=== PATIENT | female | born 1960 | race Caucasian/White ===

== ENCOUNTER 2017-05-10 09:24 | Day surgery (SDC) | payer BC ==
[2017-05-10] MEDS ORDERED: MIDAZOLAM 1 MG/ML 2 ML INJ ×3 (11:54→11:55)
[2017-05-10] MEDS ORDERED: FENTAnyl 50 MCG/ML VIAL (11:55)
== END 2017-05-10 12:33 | disposition home or self-care (01) ==
LOC: GIL 09:24
DX: C18.2 Malignant neoplasm of ascending colon (principal); K29.50 Unspecified chronic gastritis without bleeding; B96.81 Helicobacter pylori [H. pylori] as the cause of diseases classified elsewhere; K26.9 Duodenal ulcer, unspecified as acute or chronic, without hemorrhage or perforation; K64.8 Other hemorrhoids
CPT/HCPCS: 43239; 88305; 88312

== ENCOUNTER 2017-07-04 06:51 | Inpatient (IN) | payer BC ==
[2017-07-04] MEDS: AMPICILLIN/SULB 3 GM/NS (PMX) 100 ML IVPB (07:00)
[2017-07-04] MEDS ORDERED: SOD CHLORIDE 0.9% 1,000 ML IV (07:00)
[2017-07-04] MEDS: metroNIDAZOLE 500 MG/NS (PMX) 100 ML IVPB (07:00)
[2017-07-04 08:51] LABS: ADD MAN DIFF? NO
[2017-07-04 08:53] LABS: WHITE BLOOD COUNT 6.2 10^3/ul (4.8-10.8)
[2017-07-04 08:53] LABS: BASOPHIL # 0.1 10^3/ul (0.0-0.1); EOSINOPHILS # 0.1 10^3/ul (0.0-0.5); EOSINOPHILS % 1.6 % (0.0-7.0); HEMATOCRIT 36.1 % (37.0-47.0); HEMOGLOBIN 11.5 g/dl (12.0-16.0); LYMPHOCYTES # 1.8 10^3/ul (0.8-2.9); LYMPHOCYTES % 28.5 % (15.0-51.0); MEAN CORPUSCULAR HEMOGLOBIN 26.9 pg (29.0-33.0); MEAN CORPUSCULAR HGB CONC 31.9 g/dl (32.0-37.0); MEAN CORPUSCULAR VOLUME 84.3 fl (82.0-101.0); MEAN PLATELET VOLUME 12.5 fl (7.4-10.4); MONOCYTE # 0.3 10^3/ul (0.3-0.9); NEUTROPHILS % 63.7 % (39.0-77.0); PLATELET COUNT 213 10^3/UL (140-415); RED BLOOD COUNT 4.28 10^6/ul (4.20-5.40); RED CELL DISTRIBUTION WIDTH 13.5 % (11.5-14.5)
[2017-07-04 08:56] LABS: INR 1.03; PROTIME 13.6 Sec (11.9-14.9); PT RATIO 1.1
[2017-07-04 08:57] LABS: PARTIAL THROMBOPLASTIN TIME 30.2 Sec (25.0-35.0)
[2017-07-04 09:00] LABS: ALANINE AMINOTRANSFERASE 17 IU/L (13-69); ALBUMIN 4.3 g/dl (3.3-4.9); ALBUMIN/GLOBULIN RATIO 1.34; ALKALINE PHOSPHATASE 65 IU/L (42-121); ANION GAP 17 (8-16); ASPARTATE AMINO TRANSFERASE 14 IU/L (15-46); BILIRUBIN,INDIRECT 0.3 mg/dl (0-1.1); BILIRUBIN,TOTAL 0.3 mg/dl (0.2-1.3); CARBON DIOXIDE 31 mmol/L (21-31); CHLORIDE 101 mmol/L (97-110); GLUCOSE 144 mg/dl (70-220); TOTAL PROTEIN 7.5 g/dl (6.1-8.1)
[2017-07-04 09:05] LABS: BLOOD UREA NITROGEN 10 mg/dl (7-20); CALCIUM 9.5 mg/dl (8.4-10.2); CREATININE 0.65 mg/dl (0.44-1.00); POTASSIUM 4.3 mmol/L (3.5-5.1); SODIUM 145 mmol/L (135-144)
[2017-07-04] MEDS ORDERED: FENTAnyl 50 MCG/ML VIAL ×2 (09:14→11:23)
[2017-07-04] MEDS ORDERED: ROCURONIUM 50 MG INJ (09:31)
[2017-07-04] MEDS ORDERED: PROPOFOL 20 ML (09:31)
[2017-07-04] MEDS ORDERED: SUGAMMADEX SODIUM 200 MG/2 ML VIAL IV (09:31)
[2017-07-04] MEDS ORDERED: SUCCINYLCHOLINE CHLORIDE 100 MG/5 ML SYG IV (09:31)
[2017-07-04] MEDS ORDERED: CEFAZOLIN 1 GM INJ (09:31)
[2017-07-04] MEDS ORDERED: LIDOCAINE 100 MG SYRINGE (09:31)
[2017-07-04] MEDS: STERILE WATER 1L IRRIG BTL IRR (09:57)
[2017-07-04] MEDS ORDERED: METOCLOPRAMIDE 10 MG INJ IV (11:00)
[2017-07-04] MEDS ORDERED: FENTAnyl 50 MCG/ML VIAL IV ×3 (11:00)
[2017-07-04] MEDS ORDERED: MEPERIDINE 25 MG INJ IV (11:00)
[2017-07-04] MEDS ORDERED: HYDROmorphONE (0.2 MG/ML) 10ML SYG IV (11:00)
[2017-07-04] MEDS ORDERED: DIPHENHYDRAMINE 50 MG INJ IV (11:00)
[2017-07-04] MEDS ORDERED: ACETAMINOPHEN 1000MG/100ML IV 100 ML IVPB (11:30)
[2017-07-04] MEDS: HYDROmorphONE (0.2 MG/ML) 10ML SYG IV ×3 (11:46→12:11)
[2017-07-04] MEDS: ONDANSETRON 4 MG INJ IV (12:03)
[2017-07-04] MEDS: morphine 1 MG/ML 30 ML (PCA) IV ×3 (12:21→20:48)
[2017-07-04] MEDS: D5W-0.45 NACL + KCL 20 MEQ 1,000 ML IV ×2 (13:34→21:14)
[2017-07-04] MEDS ORDERED: GLUCOSE GEL 15 GRAM TUBE BUCCAL (16:30)
[2017-07-04] MEDS ORDERED: GLUCOSE GEL 15 GRAM TUBE PO ×2 (16:30)
[2017-07-04] MEDS ORDERED: GLUCAGON 1 MG INJ IM (16:30)
[2017-07-04] MEDS ORDERED: DEXTROSE 50% 50 ML SYRINGE IV ×2 (16:30)
[2017-07-04] MEDS: INSULIN ASPART [NOVOLOG] 3 ML PEN SC ×2 (17:00→20:53)
[2017-07-04] MEDS: SOD CHLORIDE 0.9% 1,000 ML IV ×2 (20:40→22:01)
[2017-07-05] MEDS: INSULIN ASPART [NOVOLOG] 3 ML PEN SC ×6 (00:49→20:40)
[2017-07-05] MEDS: ACCU-CHEK XX (01:05)
[2017-07-05] MEDS: ONDANSETRON 4 MG INJ IV (04:20)
[2017-07-05] MEDS: D5W-0.45 NACL + KCL 20 MEQ 1,000 ML IV ×3 (05:29→20:42)
[2017-07-05] MEDS ORDERED: INFLUENZA VIRUS VACCINE 0.5 ML (DISPENSING) IM* (09:00)
[2017-07-05 09:54] LABS: ADD MAN DIFF? NO
[2017-07-05 09:56] LABS: BASOPHILS % 0.2 % (0.0-2.0); HEMATOCRIT 33.4 % (37.0-47.0); HEMOGLOBIN 10.5 g/dl (12.0-16.0); LYMPHOCYTES # 0.9 10^3/ul (0.8-2.9); LYMPHOCYTES % 6.5 % (15.0-51.0); MEAN CORPUSCULAR HEMOGLOBIN 27.1 pg (29.0-33.0); MEAN CORPUSCULAR HGB CONC 31.4 g/dl (32.0-37.0); MEAN CORPUSCULAR VOLUME 86.3 fl (82.0-101.0); MEAN PLATELET VOLUME 12.1 fl (7.4-10.4); MONOCYTE # 0.6 10^3/ul (0.3-0.9); MONOCYTES % 4.4 % (0.0-11.0); NEUTROPHIL # 11.6 10^3/ul (1.6-7.5); NEUTROPHILS % 88.4 % (39.0-77.0); PLATELET COUNT 201 10^3/UL (140-415); RED BLOOD COUNT 3.87 10^6/ul (4.20-5.40); RED CELL DISTRIBUTION WIDTH 13.9 % (11.5-14.5)
[2017-07-05 09:56] LABS: WHITE BLOOD COUNT 13.2 10^3/ul (4.8-10.8)
[2017-07-05 10:23] LABS: ANION GAP 12 (8-16); BLOOD UREA NITROGEN 5 mg/dl (7-20); CALCIUM 8.6 mg/dl (8.4-10.2); CARBON DIOXIDE 31 mmol/L (21-31); CHLORIDE 102 mmol/L (97-110); CREATININE 0.67 mg/dl (0.44-1.00); GLUCOSE 185 mg/dl (70-220); MAGNESIUM 1.7 mg/dl (1.7-2.5); PHOSPHORUS 2.8 mg/dl (2.5-4.9); POTASSIUM 4.5 mmol/L (3.5-5.1); SODIUM 140 mmol/L (135-144)
[2017-07-05 10:45] LABS: PARTIAL THROMBOPLASTIN TIME 33.3 Sec (25.0-35.0)
[2017-07-05 10:50] LABS: PROTIME 15.4 Sec (11.9-14.9)
[2017-07-05 10:51] LABS: PT RATIO 1.2
[2017-07-05] MEDS: morphine 1 MG/ML 30 ML (PCA) IV (12:52)
[2017-07-05] MEDS: HYDROmorphONE 0.2 MG/ML PCA IV (18:18)
[2017-07-06] MEDS: INSULIN ASPART [NOVOLOG] 3 ML PEN SC ×6 (01:00→20:45)
[2017-07-06] MEDS: ACCU-CHEK XX (01:38)
[2017-07-06] MEDS: D5W-0.45 NACL + KCL 20 MEQ 1,000 ML IV ×3 (03:35→21:02)
[2017-07-06 11:20] LABS: ADD MAN DIFF? NO
[2017-07-06 11:26] LABS: BASOPHILS % 0.1 % (0.0-2.0); EOSINOPHILS % 0.1 % (0.0-7.0); HEMATOCRIT 31.4 % (37.0-47.0); HEMOGLOBIN 10.1 g/dl (12.0-16.0); LYMPHOCYTES # 0.9 10^3/ul (0.8-2.9); LYMPHOCYTES % 6.6 % (15.0-51.0); MEAN CORPUSCULAR HEMOGLOBIN 27.2 pg (29.0-33.0); MEAN CORPUSCULAR HGB CONC 32.2 g/dl (32.0-37.0); MEAN CORPUSCULAR VOLUME 84.6 fl (82.0-101.0); MEAN PLATELET VOLUME 12.2 fl (7.4-10.4); MONOCYTE # 0.5 10^3/ul (0.3-0.9); MONOCYTES % 3.4 % (0.0-11.0); NEUTROPHIL # 11.9 10^3/ul (1.6-7.5); NEUTROPHILS % 89.2 % (39.0-77.0); PLATELET COUNT 204 10^3/UL (140-415); RED BLOOD COUNT 3.71 10^6/ul (4.20-5.40); RED CELL DISTRIBUTION WIDTH 13.3 % (11.5-14.5)
[2017-07-06 11:26] LABS: WHITE BLOOD COUNT 13.4 10^3/ul (4.8-10.8)
[2017-07-06 11:45] LABS: ANION GAP 11 (8-16); BLOOD UREA NITROGEN 5 mg/dl (7-20); CALCIUM 8.9 mg/dl (8.4-10.2); CARBON DIOXIDE 32 mmol/L (21-31); CHLORIDE 99 mmol/L (97-110); CREATININE 0.54 mg/dl (0.44-1.00); GLUCOSE 178 mg/dl (70-220); PHOSPHORUS 1.5 mg/dl (2.5-4.9); SODIUM 138 mmol/L (135-144)
[2017-07-06 11:51] LABS: INR 1.13; PROTIME 14.7 Sec (11.9-14.9); PT RATIO 1.1
[2017-07-06 11:52] LABS: PARTIAL THROMBOPLASTIN TIME 33.6 Sec (25.0-35.0)
[2017-07-06 12:01] LABS: MAGNESIUM 1.9 mg/dl (1.7-2.5)
[2017-07-06] MEDS: SODIUM PHOSPHATE 15 MMOL in SOD CHLORIDE 0.9% 250 ML IVPB (17:48)
[2017-07-07] MEDS: INSULIN ASPART [NOVOLOG] 3 ML PEN SC ×6 (00:34→21:20)
[2017-07-07] MEDS: D5W-0.45 NACL + KCL 20 MEQ 1,000 ML IV ×3 (00:38→22:02)
[2017-07-07] MEDS: ACCU-CHEK XX (02:00)
[2017-07-07 10:07] LABS: ADD MAN DIFF? NO
[2017-07-07 10:08] LABS: WHITE BLOOD COUNT 12.3 10^3/ul (4.8-10.8)
[2017-07-07 10:08] LABS: BASOPHIL # 0.1 10^3/ul (0.0-0.1); BASOPHILS % 0.4 % (0.0-2.0); EOSINOPHILS % 0.3 % (0.0-7.0); HEMATOCRIT 32.6 % (37.0-47.0); HEMOGLOBIN 10.4 g/dl (12.0-16.0); LYMPHOCYTES # 1.2 10^3/ul (0.8-2.9); LYMPHOCYTES % 9.4 % (15.0-51.0); MEAN CORPUSCULAR HEMOGLOBIN 26.9 pg (29.0-33.0); MEAN CORPUSCULAR HGB CONC 31.9 g/dl (32.0-37.0); MEAN CORPUSCULAR VOLUME 84.5 fl (82.0-101.0); MEAN PLATELET VOLUME 12.1 fl (7.4-10.4); MONOCYTE # 0.5 10^3/ul (0.3-0.9); MONOCYTES % 4.2 % (0.0-11.0); NEUTROPHIL # 10.5 10^3/ul (1.6-7.5); NEUTROPHILS % 85.2 % (39.0-77.0); PLATELET COUNT 231 10^3/UL (140-415); RED BLOOD COUNT 3.86 10^6/ul (4.20-5.40); RED CELL DISTRIBUTION WIDTH 13.2 % (11.5-14.5)
[2017-07-07 10:34] LABS: ANION GAP 15 (8-16); BLOOD UREA NITROGEN 10 mg/dl (7-20); CALCIUM 8.9 mg/dl (8.4-10.2); CARBON DIOXIDE 29 mmol/L (21-31); CHLORIDE 103 mmol/L (97-110); CREATININE 0.59 mg/dl (0.44-1.00); GLUCOSE 150 mg/dl (70-220); INR 1.09; PHOSPHORUS 2.2 mg/dl (2.5-4.9); POTASSIUM 3.6 mmol/L (3.5-5.1); PROTIME 14.2 Sec (11.9-14.9); PT RATIO 1.1; SODIUM 143 mmol/L (135-144)
[2017-07-07] MEDS: ONDANSETRON 4 MG INJ IV (11:39)
[2017-07-07 14:14] LABS: ADD UMIC YES; UR ASCORBIC ACID NEGATIVE (NEGATIVE); UR BILIRUBIN (Dip) NEGATIVE (NEGATIVE); UR BLOOD (Dip) NEGATIVE (NEGATIVE); UR CLARITY CLEAR (CLEAR); UR COLOR YELLOW (YELLOW); UR GLUCOSE (Dip) NEGATIVE (NEGATIVE); UR KETONES (Dip) 1+ mg/dL (NEGATIVE); UR LEUKOCYTE ESTERASE (Dip) NEGATIVE Leu/ul (NEGATIVE); UR MUCUS FEW /HPF (NONE SEEN); UR NITRITE (Dip) NEGATIVE (NEGATIVE); UR RBC 5 /HPF (0-5); UR SPECIFIC GRAVITY (Dip) 1.016 (1.003-1.030); UR TOTAL PROTEIN (Dip) 1+ mg/dl (NEGATIVE); UR UROBILINOGEN (Dip) NEGATIVE (NEGATIVE); UR WBC 3 /HPF (0-5)
[2017-07-07] MEDS: hydrALAzine 20 MG INJ IV (14:27)
[2017-07-08] MEDS: INSULIN ASPART [NOVOLOG] 3 ML PEN SC ×6 (01:04→20:18)
[2017-07-08] MEDS: ACCU-CHEK XX (02:00)
[2017-07-08] MEDS: D5W-0.45 NACL + KCL 20 MEQ 1,000 ML IV ×2 (02:39→15:09)
[2017-07-08] MEDS: ONDANSETRON 4 MG INJ IV (04:19)
[2017-07-08 06:19] LABS: ANION GAP 13 (8-16); BLOOD UREA NITROGEN 12 mg/dl (7-20); CALCIUM 8.9 mg/dl (8.4-10.2); CARBON DIOXIDE 29 mmol/L (21-31); CHLORIDE 103 mmol/L (97-110); CREATININE 0.58 mg/dl (0.44-1.00); GLUCOSE 166 mg/dl (70-220); POTASSIUM 3.6 mmol/L (3.5-5.1); SODIUM 141 mmol/L (135-144)
[2017-07-09] MEDS: INSULIN ASPART [NOVOLOG] 3 ML PEN SC ×6 (01:29→21:17)
[2017-07-09] MEDS: ACCU-CHEK XX (02:00)
[2017-07-09] MEDS: D5W-0.45 NACL + KCL 20 MEQ 1,000 ML IV (02:17)
[2017-07-09 05:47] LABS: ADD MAN DIFF? NO
[2017-07-09 05:51] LABS: BASOPHIL # 0.1 10^3/ul (0.0-0.1); BASOPHILS % 0.6 % (0.0-2.0); EOSINOPHILS # 0.2 10^3/ul (0.0-0.5); EOSINOPHILS % 1.6 % (0.0-7.0); HEMATOCRIT 35.2 % (37.0-47.0); HEMOGLOBIN 11.3 g/dl (12.0-16.0); LYMPHOCYTES # 1.8 10^3/ul (0.8-2.9); LYMPHOCYTES % 14.9 % (15.0-51.0); MEAN CORPUSCULAR HEMOGLOBIN 26.7 pg (29.0-33.0); MEAN CORPUSCULAR HGB CONC 32.1 g/dl (32.0-37.0); MEAN PLATELET VOLUME 11.8 fl (7.4-10.4); MONOCYTE # 0.6 10^3/ul (0.3-0.9); MONOCYTES % 5.1 % (0.0-11.0); NEUTROPHIL # 9.6 10^3/ul (1.6-7.5); NEUTROPHILS % 77.5 % (39.0-77.0); PLATELET COUNT 325 10^3/UL (140-415); RED BLOOD COUNT 4.24 10^6/ul (4.20-5.40); RED CELL DISTRIBUTION WIDTH 13.6 % (11.5-14.5)
[2017-07-09 05:51] LABS: WHITE BLOOD COUNT 12.4 10^3/ul (4.8-10.8)
[2017-07-09 06:14] LABS: ANION GAP 13 (8-16); BLOOD UREA NITROGEN 15 mg/dl (7-20); CALCIUM 8.5 mg/dl (8.4-10.2); CARBON DIOXIDE 30 mmol/L (21-31); CHLORIDE 102 mmol/L (97-110); CREATININE 0.52 mg/dl (0.44-1.00); GLUCOSE 162 mg/dl (70-220); POTASSIUM 3.9 mmol/L (3.5-5.1); SODIUM 141 mmol/L (135-144)
[2017-07-09] MEDS: HYDROmorphONE 0.5 MG/0.5 ML SYG IV (11:49)
[2017-07-10] MEDS: D5W-0.45 NACL + KCL 20 MEQ 1,000 ML IV ×3 (00:02→12:15)
[2017-07-10] MEDS: INSULIN ASPART [NOVOLOG] 3 ML PEN SC ×6 (01:00→21:00)
[2017-07-10] MEDS: ACCU-CHEK XX (02:00)
[2017-07-10 05:37] LABS: ADD MAN DIFF? NO
[2017-07-10 05:38] LABS: WHITE BLOOD COUNT 10.4 10^3/ul (4.8-10.8)
[2017-07-10 05:38] LABS: BASOPHIL # 0.1 10^3/ul (0.0-0.1); BASOPHILS % 0.6 % (0.0-2.0); EOSINOPHILS # 0.3 10^3/ul (0.0-0.5); EOSINOPHILS % 2.7 % (0.0-7.0); HEMATOCRIT 32.6 % (37.0-47.0); HEMOGLOBIN 10.5 g/dl (12.0-16.0); LYMPHOCYTES # 1.9 10^3/ul (0.8-2.9); LYMPHOCYTES % 18.4 % (15.0-51.0); MEAN CORPUSCULAR HEMOGLOBIN 26.7 pg (29.0-33.0); MEAN CORPUSCULAR HGB CONC 32.2 g/dl (32.0-37.0); MEAN PLATELET VOLUME 11.9 fl (7.4-10.4); MONOCYTE # 0.7 10^3/ul (0.3-0.9); MONOCYTES % 6.3 % (0.0-11.0); NEUTROPHIL # 7.5 10^3/ul (1.6-7.5); NEUTROPHILS % 71.7 % (39.0-77.0); PLATELET COUNT 285 10^3/UL (140-415); RED BLOOD COUNT 3.93 10^6/ul (4.20-5.40); RED CELL DISTRIBUTION WIDTH 13.6 % (11.5-14.5)
[2017-07-10] MEDS: DIATR MEGLU/DIATRIZOATE SODIUM 120 ML BTL (12:13)
[2017-07-10] MEDS: ONDANSETRON 4 MG INJ IV ×2 (14:37→20:01)
[2017-07-10] MEDS: HYDROmorphONE 0.5 MG/0.5 ML SYG IV ×2 (14:38→18:41)
[2017-07-10] MEDS: METOCLOPRAMIDE 10 MG INJ IV (22:45)
[2017-07-11] MEDS: INSULIN ASPART [NOVOLOG] 3 ML PEN SC ×5 (00:21→21:00)
[2017-07-11] MEDS: D5W-0.45 NACL + KCL 20 MEQ 1,000 ML IV (01:57)
[2017-07-11] MEDS: ACCU-CHEK XX (02:01)
[2017-07-11 05:06] LABS: ADD MAN DIFF? NO
[2017-07-11 05:07] LABS: BASOPHIL # 0.1 10^3/ul (0.0-0.1); BASOPHILS % 0.4 % (0.0-2.0); EOSINOPHILS # 0.2 10^3/ul (0.0-0.5); EOSINOPHILS % 1.3 % (0.0-7.0); HEMATOCRIT 34.5 % (37.0-47.0); HEMOGLOBIN 11.2 g/dl (12.0-16.0); LYMPHOCYTES # 1.7 10^3/ul (0.8-2.9); LYMPHOCYTES % 14.9 % (15.0-51.0); MEAN CORPUSCULAR HEMOGLOBIN 26.9 pg (29.0-33.0); MEAN CORPUSCULAR HGB CONC 32.5 g/dl (32.0-37.0); MEAN CORPUSCULAR VOLUME 82.7 fl (82.0-101.0); MEAN PLATELET VOLUME 11.6 fl (7.4-10.4); MONOCYTE # 0.7 10^3/ul (0.3-0.9); MONOCYTES % 5.8 % (0.0-11.0); NEUTROPHIL # 8.6 10^3/ul (1.6-7.5); NEUTROPHILS % 77.3 % (39.0-77.0); PLATELET COUNT 340 10^3/UL (140-415); RED BLOOD COUNT 4.17 10^6/ul (4.20-5.40); RED CELL DISTRIBUTION WIDTH 13.5 % (11.5-14.5)
[2017-07-11 05:07] LABS: WHITE BLOOD COUNT 11.2 10^3/ul (4.8-10.8)
[2017-07-11 05:35] LABS: ANION GAP 16 (8-16); BLOOD UREA NITROGEN 13 mg/dl (7-20); CALCIUM 8.8 mg/dl (8.4-10.2); CARBON DIOXIDE 27 mmol/L (21-31); CHLORIDE 102 mmol/L (97-110); CREATININE 0.59 mg/dl (0.44-1.00); GLUCOSE 157 mg/dl (70-220); POTASSIUM 3.9 mmol/L (3.5-5.1); SODIUM 141 mmol/L (135-144)
[2017-07-11] MEDS ORDERED: DEXTROSE 50% 50 ML SYRINGE IV ×2 (12:30)
[2017-07-11] MEDS ORDERED: GLUCOSE GEL 15 GRAM TUBE BUCCAL (12:30)
[2017-07-11] MEDS ORDERED: GLUCOSE GEL 15 GRAM TUBE PO ×2 (12:30)
[2017-07-11] MEDS ORDERED: GLUCAGON 1 MG INJ IM (12:30)
[2017-07-11] MEDS: ONDANSETRON 4 MG INJ IV (13:39)
[2017-07-11] MEDS ORDERED: ACCU-CHEK XX (13:40)
[2017-07-11] MEDS: LEVOFLOXACIN 500MG/D5W (PMX) 100 ML IVPB (13:41)
[2017-07-11] MEDS ORDERED: INSULIN ASPART [NOVOLOG] 3 ML PEN SC (17:55)
[2017-07-11] MEDS: 1/2 NS + KCL 20 MEQ 1,000 ML IV (18:50)
[2017-07-11] MEDS: HYDROGEN PEROXIDE 118 ML TOP (21:00)
[2017-07-12] MEDS: ACCU-CHEK XX (02:00)
[2017-07-12 05:07] LABS: ADD MAN DIFF? NO
[2017-07-12 05:12] LABS: WHITE BLOOD COUNT 7.4 10^3/ul (4.8-10.8)
[2017-07-12 05:12] LABS: BASOPHIL # 0.1 10^3/ul (0.0-0.1); BASOPHILS % 0.7 % (0.0-2.0); EOSINOPHILS # 0.2 10^3/ul (0.0-0.5); EOSINOPHILS % 2.2 % (0.0-7.0); HEMATOCRIT 31.4 % (37.0-47.0); HEMOGLOBIN 10.1 g/dl (12.0-16.0); LYMPHOCYTES # 1.4 10^3/ul (0.8-2.9); LYMPHOCYTES % 19.5 % (15.0-51.0); MEAN CORPUSCULAR HEMOGLOBIN 26.5 pg (29.0-33.0); MEAN CORPUSCULAR HGB CONC 32.2 g/dl (32.0-37.0); MEAN CORPUSCULAR VOLUME 82.4 fl (82.0-101.0); MONOCYTE # 0.4 10^3/ul (0.3-0.9); MONOCYTES % 5.3 % (0.0-11.0); NEUTROPHIL # 5.3 10^3/ul (1.6-7.5); RED BLOOD COUNT 3.81 10^6/ul (4.20-5.40); RED CELL DISTRIBUTION WIDTH 13.8 % (11.5-14.5)
[2017-07-12 05:23] LABS: ANION GAP 14 (8-16); BLOOD UREA NITROGEN 9 mg/dl (7-20); CALCIUM 8.9 mg/dl (8.4-10.2); CARBON DIOXIDE 27 mmol/L (21-31); CHLORIDE 102 mmol/L (97-110); CREATININE 0.58 mg/dl (0.44-1.00); GLUCOSE 138 mg/dl (70-220); POTASSIUM 4.2 mmol/L (3.5-5.1); SODIUM 139 mmol/L (135-144)
[2017-07-12 05:53] LABS: HEMOGLOBIN A1C 6.1 % (0-5.9)
[2017-07-12 06:16] LABS: PLATELET COUNT 181 10^3/UL (140-415); POSITIVE DIFF @See below
[2017-07-12] MEDS: 1/2 NS + KCL 20 MEQ 1,000 ML IV (06:54)
[2017-07-12] MEDS: INSULIN ASPART [NOVOLOG] 3 ML PEN SC ×4 (07:50→20:58)
[2017-07-12] MEDS: HYDROGEN PEROXIDE 118 ML TOP ×2 (08:34→20:59)
[2017-07-12] MEDS: LEVOFLOXACIN 500MG/D5W (PMX) 100 ML IVPB (13:10)
[2017-07-12] MEDS ORDERED: HYDROCODONE/APAP (5/325) TAB PO (17:30)
[2017-07-13] MEDS: ACCU-CHEK XX (01:55)
[2017-07-13 05:57] LABS: ADD MAN DIFF? NO
[2017-07-13 06:00] LABS: BASOPHIL # 0.1 10^3/ul (0.0-0.1); BASOPHILS % 0.7 % (0.0-2.0); EOSINOPHILS # 0.2 10^3/ul (0.0-0.5); EOSINOPHILS % 2.3 % (0.0-7.0); HEMATOCRIT 33.5 % (37.0-47.0); HEMOGLOBIN 10.7 g/dl (12.0-16.0); LYMPHOCYTES # 1.8 10^3/ul (0.8-2.9); LYMPHOCYTES % 18.9 % (15.0-51.0); MEAN CORPUSCULAR HEMOGLOBIN 26.4 pg (29.0-33.0); MEAN CORPUSCULAR HGB CONC 31.9 g/dl (32.0-37.0); MEAN CORPUSCULAR VOLUME 82.5 fl (82.0-101.0); MEAN PLATELET VOLUME 11.7 fl (7.4-10.4); MONOCYTE # 0.6 10^3/ul (0.3-0.9); MONOCYTES % 6.5 % (0.0-11.0); NEUTROPHIL # 6.9 10^3/ul (1.6-7.5); NEUTROPHILS % 71.2 % (39.0-77.0); PLATELET COUNT 318 10^3/UL (140-415); RED BLOOD COUNT 4.06 10^6/ul (4.20-5.40); RED CELL DISTRIBUTION WIDTH 13.8 % (11.5-14.5)
[2017-07-13 06:00] LABS: WHITE BLOOD COUNT 9.7 10^3/ul (4.8-10.8)
[2017-07-13 06:53] LABS: ANION GAP 16 (8-16); BLOOD UREA NITROGEN 10 mg/dl (7-20); CALCIUM 9.1 mg/dl (8.4-10.2); CARBON DIOXIDE 26 mmol/L (21-31); CHLORIDE 103 mmol/L (97-110); CREATININE 0.66 mg/dl (0.44-1.00); GLUCOSE 136 mg/dl (70-220); POTASSIUM 4.2 mmol/L (3.5-5.1); SODIUM 141 mmol/L (135-144)
[2017-07-13] MEDS: INSULIN ASPART [NOVOLOG] 3 ML PEN SC ×4 (07:50→22:08)
[2017-07-13] MEDS: HYDROGEN PEROXIDE 118 ML TOP ×2 (08:27→21:00)
[2017-07-13] MEDS: ONDANSETRON 4 MG INJ IV (10:13)
[2017-07-13] MEDS: METOCLOPRAMIDE 10 MG INJ IV (11:43)
[2017-07-13] MEDS: HYDROmorphONE 0.5 MG/0.5 ML SYG IV ×2 (13:16→17:46)
[2017-07-13] MEDS: LEVOFLOXACIN 500MG/D5W (PMX) 100 ML IVPB (13:24)
[2017-07-13] MEDS: SILVER SULFADIAZINE 1% 25 GM CR TOP (22:09)
[2017-07-14] MEDS: ACCU-CHEK XX (02:00)
[2017-07-14 05:30] LABS: ADD MAN DIFF? NO; BASOPHIL # 0.1 10^3/ul (0.0-0.1); BASOPHILS % 0.5 % (0.0-2.0); EOSINOPHILS # 0.1 10^3/ul (0.0-0.5); EOSINOPHILS % 0.6 % (0.0-7.0); HEMATOCRIT 40.6 % (37.0-47.0); HEMOGLOBIN 12.8 g/dl (12.0-16.0); LYMPHOCYTES # 2.1 10^3/ul (0.8-2.9); LYMPHOCYTES % 15.2 % (15.0-51.0); MEAN CORPUSCULAR HEMOGLOBIN 25.8 pg (29.0-33.0); MEAN CORPUSCULAR HGB CONC 31.5 g/dl (32.0-37.0); MEAN CORPUSCULAR VOLUME 81.9 fl (82.0-101.0); MEAN PLATELET VOLUME 11.9 fl (7.4-10.4); MONOCYTE # 0.8 10^3/ul (0.3-0.9); MONOCYTES % 5.4 % (0.0-11.0); NEUTROPHIL # 10.9 10^3/ul (1.6-7.5); NEUTROPHILS % 77.7 % (39.0-77.0); PLATELET COUNT 424 10^3/UL (140-415); RED BLOOD COUNT 4.96 10^6/ul (4.20-5.40); RED CELL DISTRIBUTION WIDTH 13.7 % (11.5-14.5)
[2017-07-14 05:45] LABS: ANION GAP 15 (8-16); BLOOD UREA NITROGEN 14 mg/dl (7-20); CALCIUM 8.9 mg/dl (8.4-10.2); CARBON DIOXIDE 25 mmol/L (21-31); CHLORIDE 99 mmol/L (97-110); CREATININE 0.65 mg/dl (0.44-1.00); GLUCOSE 166 mg/dl (70-220); POTASSIUM 4.4 mmol/L (3.5-5.1); SODIUM 135 mmol/L (135-144)
[2017-07-14] MEDS: INSULIN ASPART [NOVOLOG] 3 ML PEN SC ×4 (08:49→20:56)
[2017-07-14] MEDS: HYDROGEN PEROXIDE 118 ML TOP ×2 (10:45→21:20)
[2017-07-14] MEDS: SILVER SULFADIAZINE 1% 25 GM CR TOP ×2 (10:45→20:57)
[2017-07-14] MEDS: LEVOFLOXACIN 500MG/D5W (PMX) 100 ML IVPB (13:25)
[2017-07-14] MEDS: CIPROFLOXACIN 400MG/D5W 200 ML IVPB (20:55)
[2017-07-15] MEDS: ACCU-CHEK XX (02:00)
[2017-07-15] MEDS: INSULIN ASPART [NOVOLOG] 3 ML PEN SC ×4 (07:50→21:00)
[2017-07-15] MEDS: SILVER SULFADIAZINE 1% 25 GM CR TOP ×2 (09:05→21:13)
[2017-07-15] MEDS: CIPROFLOXACIN 400MG/D5W 200 ML IVPB ×2 (09:05→21:17)
[2017-07-15] MEDS: HYDROGEN PEROXIDE 118 ML TOP ×2 (09:06→21:13)
[2017-07-15 12:01] LABS: ADD MAN DIFF? NO
[2017-07-15 12:06] LABS: BASOPHIL # 0.1 10^3/ul (0.0-0.1); BASOPHILS % 0.7 % (0.0-2.0); EOSINOPHILS # 0.1 10^3/ul (0.0-0.5); EOSINOPHILS % 0.7 % (0.0-7.0); HEMATOCRIT 35.5 % (37.0-47.0); HEMOGLOBIN 11.4 g/dl (12.0-16.0); LYMPHOCYTES # 2.2 10^3/ul (0.8-2.9); LYMPHOCYTES % 19.2 % (15.0-51.0); MEAN CORPUSCULAR HEMOGLOBIN 26.7 pg (29.0-33.0); MEAN CORPUSCULAR HGB CONC 32.1 g/dl (32.0-37.0); MEAN CORPUSCULAR VOLUME 83.1 fl (82.0-101.0); MEAN PLATELET VOLUME 11.6 fl (7.4-10.4); MONOCYTE # 0.7 10^3/ul (0.3-0.9); MONOCYTES % 6.4 % (0.0-11.0); NEUTROPHIL # 8.1 10^3/ul (1.6-7.5); NEUTROPHILS % 72.5 % (39.0-77.0); PLATELET COUNT 368 10^3/UL (140-415); RED BLOOD COUNT 4.27 10^6/ul (4.20-5.40); RED CELL DISTRIBUTION WIDTH 13.7 % (11.5-14.5)
[2017-07-15 12:06] LABS: WHITE BLOOD COUNT 11.2 10^3/ul (4.8-10.8)
[2017-07-16] MEDS ORDERED: VANCOMYCIN IV PER PHARMACY XX (01:30)
[2017-07-16] MEDS: ACCU-CHEK XX (02:00)
[2017-07-16] MEDS: SOD CHLORIDE 0.9% IVPB (02:49)
[2017-07-16] MEDS: VANCOMYCIN IVPB (02:49)
[2017-07-16] MEDS: AMPICILLIN/SULB 3 GM/NS (PMX) 100 ML IVPB ×3 (06:05→17:56)
[2017-07-16 06:14] LABS: ANION GAP 12 (8-16); BLOOD UREA NITROGEN 10 mg/dl (7-20); CALCIUM 8.6 mg/dl (8.4-10.2); CARBON DIOXIDE 28 mmol/L (21-31); CHLORIDE 104 mmol/L (97-110); CREATININE 0.61 mg/dl (0.44-1.00); GLUCOSE 135 mg/dl (70-220); SODIUM 140 mmol/L (135-144)
[2017-07-16 06:42] LABS: ADD MAN DIFF? NO
[2017-07-16] MEDS: INSULIN ASPART [NOVOLOG] 3 ML PEN SC ×4 (07:50→21:00)
[2017-07-16] MEDS: HYDROGEN PEROXIDE 118 ML TOP ×2 (09:00→21:40)
[2017-07-16] MEDS: SILVER SULFADIAZINE 1% 25 GM CR TOP ×2 (09:00→21:40)
[2017-07-16 10:00] LABS: WHITE BLOOD COUNT 8.9 10^3/ul (4.8-10.8)
[2017-07-16 10:00] LABS: HEMATOCRIT 31.4 % (37.0-47.0); HEMOGLOBIN 9.9 g/dl (12.0-16.0); MEAN CORPUSCULAR HEMOGLOBIN 26.5 pg (29.0-33.0); MEAN CORPUSCULAR HGB CONC 31.5 g/dl (32.0-37.0); MEAN PLATELET VOLUME 12.1 fl (7.4-10.4); NEUTROPHILS % 67.9 % (39.0-77.0); PLATELET COUNT 295 10^3/UL (140-415); RED BLOOD COUNT 3.74 10^6/ul (4.20-5.40); RED CELL DISTRIBUTION WIDTH 13.7 % (11.5-14.5)
[2017-07-16 10:01] LABS: BASOPHIL # 0.1 10^3/ul (0.0-0.1); BASOPHILS % 0.6 % (0.0-2.0); EOSINOPHILS # 0.2 10^3/ul (0.0-0.5); EOSINOPHILS % 1.7 % (0.0-7.0); LYMPHOCYTES # 2.1 10^3/ul (0.8-2.9); MONOCYTE # 0.6 10^3/ul (0.3-0.9); MONOCYTES % 6.2 % (0.0-11.0); NEUTROPHIL # 6.1 10^3/ul (1.6-7.5)
[2017-07-16] MEDS: VANCOMYCIN 1 GM 250 ML IVPB (15:23)
[2017-07-17] MEDS: AMPICILLIN/SULB 3 GM/NS (PMX) 100 ML IVPB ×4 (00:07→17:20)
[2017-07-17] MEDS: ACCU-CHEK XX (02:00)
[2017-07-17] MEDS: VANCOMYCIN 1 GM 250 ML IVPB ×2 (02:52→14:34)
[2017-07-17 05:03] LABS: ADD MAN DIFF? NO
[2017-07-17 05:05] LABS: WHITE BLOOD COUNT 8.3 10^3/ul (4.8-10.8)
[2017-07-17 05:05] LABS: BASOPHIL # 0.1 10^3/ul (0.0-0.1); BASOPHILS % 0.7 % (0.0-2.0); EOSINOPHILS # 0.2 10^3/ul (0.0-0.5); EOSINOPHILS % 2.2 % (0.0-7.0); HEMATOCRIT 30.6 % (37.0-47.0); HEMOGLOBIN 9.7 g/dl (12.0-16.0); LYMPHOCYTES # 1.9 10^3/ul (0.8-2.9); LYMPHOCYTES % 22.7 % (15.0-51.0); MEAN CORPUSCULAR HEMOGLOBIN 26.4 pg (29.0-33.0); MEAN CORPUSCULAR HGB CONC 31.7 g/dl (32.0-37.0); MEAN CORPUSCULAR VOLUME 83.4 fl (82.0-101.0); MEAN PLATELET VOLUME 11.7 fl (7.4-10.4); MONOCYTE # 0.5 10^3/ul (0.3-0.9); MONOCYTES % 6.2 % (0.0-11.0); NEUTROPHIL # 5.6 10^3/ul (1.6-7.5); NEUTROPHILS % 67.6 % (39.0-77.0); PLATELET COUNT 282 10^3/UL (140-415); RED BLOOD COUNT 3.67 10^6/ul (4.20-5.40); RED CELL DISTRIBUTION WIDTH 13.5 % (11.5-14.5)
[2017-07-17 05:36] LABS: ANION GAP 15 (8-16); BLOOD UREA NITROGEN 8 mg/dl (7-20); CALCIUM 8.7 mg/dl (8.4-10.2); CARBON DIOXIDE 27 mmol/L (21-31); CHLORIDE 104 mmol/L (97-110); CREATININE 0.56 mg/dl (0.44-1.00); GLUCOSE 134 mg/dl (70-220); POTASSIUM 3.8 mmol/L (3.5-5.1); SODIUM 142 mmol/L (135-144)
[2017-07-17] MEDS: INSULIN ASPART [NOVOLOG] 3 ML PEN SC ×4 (07:50→21:00)
[2017-07-17] MEDS: HYDROGEN PEROXIDE 118 ML TOP ×2 (09:00→21:17)
[2017-07-17] MEDS: SILVER SULFADIAZINE 1% 25 GM CR TOP ×2 (10:42→21:17)
[2017-07-17 14:21] LABS: VANCOMYCIN,TROUGH 7.1 ug/ml (10.0-20.0)
[2017-07-18] MEDS: AMPICILLIN/SULB 3 GM/NS (PMX) 100 ML IVPB ×4 (00:37→18:00)
[2017-07-18] MEDS: VANCOMYCIN 1.5 GM in SOD CHLORIDE 0.9% 250 ML IVPB ×2 (01:45→14:11)
[2017-07-18] MEDS: ACCU-CHEK XX (02:00)
[2017-07-18] MEDS: INSULIN ASPART [NOVOLOG] 3 ML PEN SC ×3 (07:50→17:55)
[2017-07-18] MEDS: HYDROGEN PEROXIDE 118 ML TOP (08:37)
[2017-07-18] MEDS: SILVER SULFADIAZINE 1% 25 GM CR TOP (08:37)
[2017-07-18] MEDS: SODIUM HYPOCHLORITE 0.125% 473 ML BTL IRR (17:00)
== END 2017-07-18 18:20 | disposition home health service (06) | DRG 330 ==
LOC: REC 06:51 → MS1 07-06 19:00
PROC: 0DTF0ZZ Resection of Right Large Intestine, Open Approach (ICD-10-PCS; principal; 2017-07-04 09:00)
DX: C18.2 Malignant neoplasm of ascending colon (principal); K56.699 Other intestinal obstruction unspecified as to partial versus complete obstruction; T81.4XXA Infection following a procedure, initial encounter; B96.20 Unspecified Escherichia coli [E. coli] as the cause of diseases classified elsewhere; D50.9 Iron deficiency anemia, unspecified; E11.9 Type 2 diabetes mellitus without complications; F41.9 Anxiety disorder, unspecified; I10 Essential (primary) hypertension; E83.39 Other disorders of phosphorus metabolism; E66.9 Obesity, unspecified; Z68.29 Body mass index [BMI] 29.0-29.9, adult
CPT/HCPCS: 71045; 74250; 80048; 80053; 80202; 81001; 82962; 83036; 83735; 84100; 85025; 85610; 85730; 87070; 87081; 88309; 93005